=== PATIENT | male | born 1980 | race Caucasian/White ===

== ENCOUNTER → 2016-07-12 | Outpatient (CLI) | payer BC ==
--- NOTE | 2016-07-12 16:37 | MR ---
MR lumbar spine wo con LBP, francheska leg radic x 1 year, no surgery/trauma Multiplanar, multiecho imaging of the lumbar spine was obtained without contrast on a 3 Jessica magn et. REFERENCE:None. FINDINGS: Paraspinal soft tissues are normal. There is a mild dextroscoliosis. This may, in part, be positional. Vertebral body height and alignmen t are maintained. There is no spondylolysis or spondylolisthesis. Cord signal is maintained the conus ends normally at the level of the mid body of L1. At T12-L1, no definite abnormality is seen. At L1-2, there is mild capsulitis within the facets. At L2-3, there is minor hypertrophic change within the facets. At L3-4, there is a diffuse disc displacement. There is mild, bilateral intervertebral foraminal narr owing. There is mild hypertrophic change and capsulitis within the facets. At L4-5, there is mild, bilateral intervertebral foraminal narrowing. There is no significant urszula sive discopathy. There is mild hypertrophic change and capsulitis within the facets. At L5-S1, there is disc space loss and disc desiccation. There is a central and left paracentral disc protrusion impinging upon the intervertebral foramen on the left and causing severe intervertebral f oraminal narrowing on the left. This is deforming the thecal sac and also displacing the traversing S 1 nerve root on the left. There is mild capsulitis within the facets. IMPRESSION: 1. CENTRAL LEFT PARACENTRAL DISC PROTRUSION, L5-S1, CAUSING SEVERE INTERVERTEBRAL FORAMINAL NARROWING ON THE LEFT AT THIS LEVEL. 2. DIFFUSE FACET ARTHROPATHY. 3. MULTILEVEL INTERVERTEBRAL FORAMINAL NARROWING.
== END | disposition home or self-care (01) ==
LOC: RADMRIMAIN 15:18
PROVIDERS: ATTEND Family Medicine
DX: M99.73 Connective tissue and disc stenosis of intervertebral foramina of lumbar region (principal); M99.74 Connective tissue and disc stenosis of intervertebral foramina of sacral region; M51.17 Intervertebral disc disorders with radiculopathy, lumbosacral region; M46.86 Other specified inflammatory spondylopathies, lumbar region
CPT/HCPCS: 72148

== ENCOUNTER 2017-08-12 11:40 | Emergency (ER) | payer BC ==
[2017-08-12 11:56] VITALS: TEMP 98.3
[2017-08-12 12:09] LABS: Basophils % (A) 0 %; Eosinophils # (A) 0.1 k/uL (0-0.7); Eosinophils % (A) 3 %; HGB 15.4 gm/dL (13.0-17.5); Lymphocytes % (A) 20 %; MCH 31.4 pg (25.0-35.0); MCHC 34.1 g/dL (31.0-37.0); MCV 91.9 fL (80.0-100.0); Mean Platelet Volume 7.4; Monocytes # (A) 0.3 k/uL (0-1.0); Monocytes % (A) 6 %; Neutrophils # (A) 3.4 k/uL (1.3-7.7); Neutrophils % (A) 70 %; Platelet Count 188 k/uL (150-450); RBC 4.89 m/uL (4.30-5.90); RDW 12.7 % (11.5-15.5); WBC 4.8 k/uL (3.8-10.6)
--- NOTE | 2017-08-12 12:14 | XR ---
Abdomen HISTORY: Pain, nausea and vomiting View of the abdomen submitted on 2 images Lung bases are clear. There is a spinal curvature. No pathologic calcification is evident. No bowel o bstruction or pneumoperitoneum. Probable phlebolith noted in the pelvis. IMPRESSION: Nonobstructive bowel gas pattern, follow-up as indicated.
[2017-08-12 12:28] LABS: ALT 34 U/L (21-72); AST 50 U/L (17-59); Albumin 4.8 g/dL (3.5-5.0); Alkaline Phosphatase 70 U/L (38-126); Amylase 82 U/L (30-110); Anion Gap 20 mmol/L; Blood Urea Nitrogen 7 mg/dL (9-20); Calcium 9.7 mg/dL (8.4-10.2); Carbon Dioxide 17 mmol/L (22-30); Chloride 101 mmol/L (98-107); Glucose 142 mg/dL (74-99); Lipase 151 U/L (23-300); Potassium 3.4 mmol/L (3.5-5.1); Sodium 138 mmol/L (137-145); Total Bilirubin 0.7 mg/dL (0.2-1.3); Total Protein 7.4 g/dL (6.3-8.2)
[2017-08-12] MEDS ORDERED: MAG HYDROX/AL HYDROX/SIMETH 30 ML, HYOSCYAMINE ELIXIR 10 ML, CIMETIDINE HCL 300 MG, LID... PO STA ×4 (13:06)
[2017-08-12] MEDS ORDERED: SODIUM CHLORIDE 0.9% 1,000 ML IV SCH (13:15)
--- NOTE | 2017-08-12 13:20 | ED ---
Abdominal Pain HPI - General Chief Complaint: Abdominal Pain Stated Complaint: Abd Pain/Arm Pain Time Seen by Provider: 08/12/17 12:26 Source: patient, family, RN notes reviewed, old records reviewed Mode of arrival: wheelchair Limitations: no limitations - History of Present Illness Initial Comments: Is a 37-year-old male presented today chief complaint of epigastric abdominal pain for approximately one day. He reports that he woke up with this pain. He reported that when this is currently feels noticed tingling in his arms and legs. Patient's also reports that over the past few days is having abnormal taste in his mouth. Patient reports he was having a upper abdominal pain intermittently for the past week, and feels like he is not able to eat and feels full whenever he eats. He states he's had no blood in his vomit or stool. - Related Data Previous Rx's Medication Instructions Recorded Famotidine [Pepcid] 20 mg PO HS #20 tablet 08/12/17 Ondansetron Odt [Zofran Odt] 4 mg PO Q8HR PRN #12 tab 08/12/17 Allergies Allergy/AdvReac Type Severity Reaction Status Date / Time No Known Allergies Allergy Verified 08/12/17 11:48 Review of Systems ROS Statement: Those systems with pertinent positive or pertinent negative responses have been documented in the HPI. ROS Other: All systems not noted in ROS Statement are negative. Past Medical History Past Medical History: No Reported History History of Any Multi-Drug Resistant Organisms: None Reported Past Surgical History: No Surgical Hx Reported Past Psychological History: No Psychological Hx Reported Smoking Status: Never smoker Past Alcohol Use History: None Reported Past Drug Use History: None Reported General Exam - General Exam Comments Initial Comments: This patient is a well-appearing 37-year-old male. No distress. Limitations: no limitations Head exam: Present: atraumatic, normocephalic, normal inspection Eye exam: Present: normal appearance, PERRL, EOMI. Absent: scleral icterus, conjunctival injection, periorbital swelling ENT exam: Present: normal exam, mucous membranes moist Neck exam: Present: normal inspection. Absent: tenderness, meningismus, lymphadenopathy Respiratory exam: Present: normal lung sounds bilaterally. Absent: respiratory distress, wheezes, rales, rhonchi, stridor Cardiovascular Exam: Present: regular rate, normal rhythm, normal heart sounds. Absent: systolic murmur, diastolic murmur, rubs, gallop, clicks GI/Abdominal exam: Present: soft, tenderness (epigastric tenderness, no rebound or guarding), normal bowel sounds. Absent: distended, guarding, rebound, rigid Extremities exam: Present: normal inspection, full ROM, normal capillary refill. Absent: tenderness, pedal edema, joint swelling, calf tenderness Back exam: Present: normal inspection Neurological exam: Present: alert, oriented X3, CN II-XII intact Course Vital Signs 08/12/17 08/12/17 08/12/17 11:48 11:51 13:51 Temperature 98.3 F Pulse Rate 123 H 77 Respiratory 28 H 18 Rate Blood Pressure 163/89 142/83 O2 Sat by Pulse 100 Oximetry 08/12/17 15:42 Temperature Pulse Rate 84 Respiratory 18 Rate Blood Pressure 122/79 O2 Sat by Pulse 98 Oximetry Medical Decision Making - Medical Decision Making This is a 37-year-old male chief complaint of severe abdominal pain that occurred this morning. He has been having some abdominal pain earlier in the week. He feels full and has not had much appetite. Patient arrives with abnormal vitals of 128 bpm Heart rate in was breathing rapidly due to pain. By the time I was able to see a patient approximately one hour into his ER stay he reports that his pain is subsiding and is feeling a bit better. Patient EKG was reviewed and normal troponins negative. Concerned that the pain may be related to gallbladder spasm or attack. We did receive an ultrasound which shows no stones. The gallbladder was contracted due to limited study. Patient' s lab work was reviewed and otherwise shows no significant abnormality's. Likely ketoacidosis from lack of appetite. Again when patient was evaluated he has minimal epigastric tenderness and no significant pain. The patient GI cocktail reports it did help somewhat. This time I discussed that his pain could be related to gallbladder spasm or possibly gastritis. I discussed the patient needs to follow-up with his primary care provider and possibly GI specialist. Discussed the pain returns that he needs to be evaluated me do further studies at his CAT scan. Patient is in grants. He states he feels better without much intervention at this time. Patient will be discharged with a prescription for Pepcid and nausea medicine. Discussed clear liquid diet as well as following up with PCP. Patient be given a referral for GI specialist. - Lab Data Result diagrams: 08/12/17 11:55 08/12/17 11:55 Lab Results 08/12/17 08/12/17 08/12/17 Range/Units 11:55 11:55 11:55 WBC 4.8 (3.8-10.6) k/uL RBC 4.89 (4.30-5.90) m/uL Hgb 15.4 (13.0-17.5) gm/dL Hct 45.0 (39.0-53.0) % MCV 91.9 (80.0-100.0) fL MCH 31.4 (25.0-35.0) pg MCHC 34.1 (31.0-37.0) g/dL RDW 12.7 (11.5-15.5) % Plt Count 188 (150-450) k/uL Neutrophils % 70 % Lymphocytes % 20 % Monocytes % 6 % Eosinophils % 3 % Basophils % 0 % Neutrophils # 3.4 (1.3-7.7) k/uL Lymphocytes # 1.0 (1.0-4.8) k/uL Monocytes # 0.3 (0-1.0) k/uL Eosinophils # 0.1 (0-0.7) k/uL Basophils # 0.0 (0-0.2) k/uL Sodium 138 (137-145) mmol/L Potassium 3.4 L (3.5-5.1) mmol/L Chloride 101 (98-107) mmol/L Carbon Dioxide 17 L (22-30) mmol/L Anion Gap 20 mmol/L BUN 7 L (9-20) mg/dL Creatinine 0.69 (0.66-1.25) mg/dL Est GFR (CKD-EPI)AfAm >90 (>60 ml/min/1.73 sqM) Est GFR (CKD-EPI)NonAf >90 (>60 ml/min/1.73 sqM) Glucose 142 H (74-99) mg/dL Calcium 9.7 (8.4-10.2) mg/dL Total Bilirubin 0.7 (0.2-1.3) mg/dL AST 50 (17-59) U/L ALT 34 (21-72) U/L Alkaline Phosphatase 70 (38-126) U/L Troponin I (0.000-0.034) ng/mL Total Protein 7.4 (6.3-8.2) g/dL Albumin 4.8 (3.5-5.0) g/dL Amylase 82 (30-110) U/L Lipase 151 (23-300) U/L Urine Color Urine Appearance (Clear) Urine pH (5.0-8.0) Ur Specific [place] (1.001-1.035) Urine Protein (Negative) Urine Glucose (UA) (Negative) Urine Ketones (Negative) Urine Blood (Negative) Urine Nitrite (Negative) Urine Bilirubin (Negative) Urine Urobilinogen (<2.0) mg/dL Ur Leukocyte Esterase (Negative) Acetone, Qual Negative (Negative) 08/12/17 08/12/17 Range/Units 11:55 13:50 WBC (3.8-10.6) k/uL RBC (4.30-5.90) m/uL Hgb (13.0-17.5) gm/dL Hct (39.0-53.0) % MCV (80.0-100.0) fL MCH (25.0-35.0) pg MCHC (31.0-37.0) g/dL RDW (11.5-15.5) % Plt Count (150-450) k/uL Neutrophils % % Lymphocytes % % Monocytes % % Eosinophils % % Basophils % % Neutrophils # (1.3-7.7) k/uL Lymphocytes # (1.0-4.8) k/uL Monocytes # (0-1.0) k/uL Eosinophils # (0-0.7) k/uL Basophils # (0-0.2) k/uL Sodium (137-145) mmol/L Potassium (3.5-5.1) mmol/L Chloride (98-107) mmol/L Carbon Dioxide (22-30) mmol/L Anion Gap mmol/L BUN (9-20) mg/dL Creatinine (0.66-1.25) mg/dL Est GFR (CKD-EPI)AfAm (>60 ml/min/1.73 sqM) Est GFR (CKD-EPI)NonAf (>60 ml/min/1.73 sqM) Glucose (74-99) mg/dL Calcium (8.4-10.2) mg/dL Total Bilirubin (0.2-1.3) mg/dL AST (17-59) U/L ALT (21-72) U/L Alkaline Phosphatase (38-126) U/L Troponin I <0.012 (0.000-0.034) ng/mL Total Protein (6.3-8.2) g/dL Albumin (3.5-5.0) g/dL Amylase (30-110) U/L Lipase (23-300) U/L Urine Color Light Yellow Urine Appearance Clear (Clear) Urine pH 7.5 (5.0-8.0) Ur Specific [place] 1.004 (1.001-1.035) Urine Protein Negative (Negative) Urine Glucose (UA) Negative (Negative) Urine Ketones Trace H (Negative) Urine Blood Negative (Negative) Urine Nitrite Negative (Negative) Urine Bilirubin Negative (Negative) Urine Urobilinogen <2.0 (<2.0) mg/dL Ur Leukocyte Esterase Negative (Negative) Acetone, Qual (Negative) 08/12/17 14:19 Normal Saline rhythm, 76 these were minute. ID interval 160 ms. QRS duration 84 ms. QT QTc is 374/420 ms. Noticed this elevation or T-wave inversion. - Radiology Data Radiology results: report reviewed KUB shows a lot of instructed bowel gas pattern. Ultrasound shows contracted gallbladder. Following up for is indicated. At slightly thickening may be due to the patient not being nothing by mouth. The right kidney has no hydronephrosis or masses seen. Disposition Clinical Impression: Gastritis Disposition: HOME SELF-CARE Condition: Good Instructions: Peptic Ulcer (ED), Diet for Stomach Ulcers and Gastritis (ED) Additional Instructions: Patient needs a follow-up with primary care provider within the next 1-2 days. Clear liquid diet from this point forward, for the next 24-48 hours. Patient then can have the bananas, rice, applesauce and toast diet. Take the medication as prescribed. Follow-up with her primary care provider on Tuesday as well as follow-up with GI specialist. Return to emergency department if any alarming signs or symptoms occur. Prescriptions: Famotidine [Pepcid] 20 mg PO HS #20 tablet Ondansetron Odt [Zofran Odt] 4 mg PO Q8HR PRN #12 tab PRN Reason: Nausea Referrals: Vinay Mcbride DO [Primary Care Provider] - 1-2 days Helio Earl MD [STAFF PHYSICIAN] - 1-2 days Time of Disposition: 15:40
[2017-08-12] MEDS ORDERED: ONDANSETRON 4 MG/2 ML VIAL IVP STA (14:14)
[2017-08-12 14:16] VITALS: RESP 18
[2017-08-12 14:26] LABS: Appearance,Urine Clear (Clear); Bilirubin,Urine Negative (Negative); Blood,Urine Negative (Negative); Color,Urine Light Yellow; Glucose,Urine (UA) Negative (Negative); Ketones,Urine Trace (Negative); Leukocyte Esterase,Urine Negative (Negative); PH, Urine 7.5 (5.0-8.0); Protein,Urine Negative (Negative); Specific Gravity,Urine 1.004 (1.001-1.035); Urobilinogen,Urine <2.0 mg/dL (<2.0)
--- NOTE | 2017-08-12 14:59 | US ---
EXAMINATION TYPE: US gallbladder DATE OF EXAM: 08/12/2017 COMPARISON: NONE CLINICAL HISTORY: Pain. EXAM MEASUREMENTS: Liver Length: 13.0 cm Gallbladder Wall: 0.4 cm CBD: 0.4 cm Right Kidney: 10.9 x 3.8 x 5.0 cm Pancreas: wnl Liver: wnl Gallbladder: slightly thickened may be due to patient not being NPO for test, gallbladder is contrac thelma Evidence for sonographic Jennings's sign: No CBD: wnl Right Kidney: No hydronephrosis or masses seen and cortical medullary differentiation is maintained There is no ascites. IMPRESSION: Contracted gallbladder. Follow-up as indicated.
[2017-08-12 15:44] VITALS: BP 122/79; PULSE 84
== END 2017-08-12 16:04 | disposition home or self-care (01) ==
LOC: EC 11:40
DX: K29.70 Gastritis, unspecified, without bleeding (principal); K82.0 Obstruction of gallbladder; R20.2 Paresthesia of skin; R63.0 Anorexia
CPT/HCPCS: 36415; 93005; 80053; 82150; 82009; 83690; 84484; 85025; 81003; 74018; 76705; 99285; 96374; 96361 ×2; J2405

== ENCOUNTER → 2017-08-22 | Outpatient (CLI) | payer BC ==
--- NOTE | 2017-08-22 15:33 | NM ---
Nuclear medicine hepatobiliary scan. HISTORY: Pain. DOSAGE: The patient received 8 ounces of ensure plus and 5.4 mCi of Technetium 99m Choletec. FINDINGS: There is normal hepatic extraction. The gallbladder is seen by 50 minutes. There is bilia ry to bowel clearance by 20 minutes. Ejection fraction is 94%. IMPRESSION: 1. Gallbladder fills within 50 minutes and within normal limits. 2. Ejection fraction of 94% correlate for hyperdynamic gallbladder.
== END | disposition home or self-care (01) ==
LOC: RADNMMAIN 12:36
PROVIDERS: ATTEND Family Medicine
DX: R10.11 Right upper quadrant pain (principal)
CPT/HCPCS: 78226; A9537

== ENCOUNTER 2018-01-31 08:11 | Emergency (ER) | payer BC ==
[2018-01-31] MEDS ORDERED: LORazepam 2 MG/ML INJ IV STA (08:19)
[2018-01-31 08:21] VITALS: BP 171/96; PULSE 70; RESP 17
[2018-01-31 08:22] VITALS: TEMP 99
--- NOTE | 2018-01-31 08:24 | ED ---
General Adult HPI - General Stated complaint: numbness vomiting Time Seen by Provider: 01/31/18 08:19 Source: patient, EMS, RN notes reviewed Mode of arrival: EMS Limitations: no limitations - History of Present Illness Initial comments: 37-year-old male presents emergency Department chief complaint of feeling shaky , weakness. Patient states that his been having these bouts that been coming more frequent. He has been seen in the hospital in the past. He has been seen his primary care physician extensively and he has been referred to specialists he has had lab work, CAT scans, EMGs, EKGs all with no acute findings. Patient states that he believes it may be related to anxiety or depression. 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 Patient states he has never struggle with anxiety before though. Patient is not suicidal or homicidal. Patient denies any focal weakness he states he just generalized feels shaky all over weak. He states initially started in his shoulders and progresses. - Related Data Previous Rx's Medication Instructions Recorded LORazepam [Ativan] 0.5 mg PO BID PRN #10 tab 01/31/18 Ondansetron Odt [Zofran Odt] 4 mg PO Q8HR PRN #10 tab 01/31/18 Allergies Allergy/AdvReac Type Severity Reaction Status Date / Time No Known Allergies Allergy Verified 01/31/18 09:00 Review of Systems ROS Statement: Those systems with pertinent positive or pertinent negative responses have been documented in the HPI. ROS Other: All systems not noted in ROS Statement are negative. Past Medical History Past Medical History: No Reported History History of Any Multi-Drug Resistant Organisms: None Reported Past Surgical History: No Surgical Hx Reported Past Psychological History: No Psychological Hx Reported Smoking Status: Never smoker Past Alcohol Use History: Occasional Past Drug Use History: None Reported General Exam Limitations: no limitations General appearance: alert, in no apparent distress Head exam: Present: atraumatic, normocephalic, normal inspection Eye exam: Present: normal appearance, PERRL, EOMI. Absent: scleral icterus, conjunctival injection, periorbital swelling ENT exam: Present: normal exam, normal oropharynx, mucous membranes moist, TM's normal bilaterally, normal external ear exam Neck exam: Present: normal inspection, full ROM. Absent: tenderness, meningismus, lymphadenopathy Respiratory exam: Present: normal lung sounds bilaterally. Absent: respiratory distress, wheezes, rales, rhonchi, stridor Cardiovascular Exam: Present: regular rate, normal rhythm, normal heart sounds. Absent: systolic murmur, diastolic murmur, rubs, gallop, clicks GI/Abdominal exam: Present: soft, normal bowel sounds. Absent: distended, tenderness, guarding, rebound, rigid Extremities exam: Present: normal inspection, full ROM, normal capillary refill. Absent: tenderness, pedal edema, joint swelling, calf tenderness Neurological exam: Present: alert, oriented X3, CN II-XII intact Psychiatric exam: Present: anxious Skin exam: Present: warm, dry, intact, normal color. Absent: rash Course Vital Signs 01/31/18 08:15 Temperature 99.0 F Pulse Rate 70 Respiratory 17 Rate Blood Pressure 171/96 O2 Sat by Pulse 100 Oximetry - Reevaluation(s) Reevaluation #1: 01/31/18 08:55 Patient reevaluated states that he does feel improved after Ativan. Reevaluation #2: 01/31/18 09:34 Patient reevaluated again states that he feels 100% normal states he feels the best he has in a while. Patient was informed she'll be discharged. Medical Decision Making - Medical Decision Making 37-year-old male presented for generalized numbness, weakness. Patient symptoms seem to be related to anxiety, panic attack. Patient was given Ativan , Zofran and feels 100% improved. He had a normal exam. He has had extensive outpatient workup including lab work, CT, EMG. Patient will be discharged with a few tablets of Ativan, Zofran. He is advised to follow-up with his PCP for further treatment. Disposition Clinical Impression: Anxiety, Nausea, Panic attack Disposition: HOME SELF-CARE Condition: Stable Instructions: Panic Attack (ED) Additional Instructions: Please return to the Emergency Department if symptoms worsen or any other concerns. Prescriptions: LORazepam [Ativan] 0.5 mg PO BID PRN #10 tab PRN Reason: Anxiety Ondansetron Odt [Zofran Odt] 4 mg PO Q8HR PRN #10 tab PRN Reason: Nausea Is patient prescribed a controlled substance at d/c from ED?: Yes When asked, does pt state using other controlled substances?: No If prescribed controlled substance>3 days was MAPS reviewed?: Prescribed <3 Days Referrals: Vinay Mcbride DO [Primary Care Provider] - 1-2 days Time of Disposition: 09:37
[2018-01-31] MEDS ORDERED: ONDANSETRON 4 MG/2 ML VIAL IVP STA (08:52)
== END 2018-01-31 09:53 | disposition home or self-care (01) ==
LOC: EC 08:11
DX: F41.0 Panic disorder [episodic paroxysmal anxiety] (principal)
CPT/HCPCS: 99284; 96374; 96375; J2060; J2405

== ENCOUNTER 2018-02-04 07:10 | Emergency (ER) | payer BC ==
[2018-02-04 07:16] VITALS: RESP 16
[2018-02-04] MEDS ORDERED: ONDANSETRON 4 MG/2 ML VIAL IVP STA (07:39)
--- NOTE | 2018-02-04 07:51 | ED ---
General Adult HPI - General Chief complaint: Nausea/Vomiting/Diarrhea Stated complaint: Weakness/Dizziness Time Seen by Provider: 02/04/18 07:10 Source: patient, RN notes reviewed Mode of arrival: wheelchair Limitations: no limitations - History of Present Illness Initial comments: This is a 37-year-old male who presents emergency Department complaining of generalized weakness and vomiting. Patient states she's had intermittent symptoms at the same since the spring. Patient states his been worked up a couple of times and seen her primary medical care doctor and they have been unable to figure out what is going on. Patient states she starts with weakness in his shoulders and moves down to his abdomen and that he starts vomiting and then he just becomes weaker and weaker to the point he doesn't even think he can stand sometimes. Patient states the worst episode of this was in the spring but he's had many more episodes lately in the frequency is becoming greater. Patient denies any fever chills. Patient denies any specific abdominal pain. Patient denies any chest pain difficulty breathing shortness of breath or palpitations. Patient denies headache patient denies numbness weakness. Patient denies any dizziness near syncopal episode or syncopal episode. Patient denies any dysuria hematuria urinary frequency. Patient denies any back pain. Patient denies any recent injury or trauma. - Related Data Home Medications Medication Instructions Recorded Confirmed Sertraline [Zoloft] 25 mg PO DAILY 02/04/18 02/04/18 Previous Rx's Medication Instructions Recorded LORazepam [Ativan] 0.5 mg PO BID PRN #10 tab 01/31/18 Allergies Allergy/AdvReac Type Severity Reaction Status Date / Time No Known Allergies Allergy Verified 02/04/18 07:16 Review of Systems ROS Statement: Those systems with pertinent positive or pertinent negative responses have been documented in the HPI. ROS Other: All systems not noted in ROS Statement are negative. Past Medical History Past Medical History: No Reported History History of Any Multi-Drug Resistant Organisms: None Reported Past Surgical History: No Surgical Hx Reported Past Psychological History: Anxiety Smoking Status: Heavy tobacco smoker Past Alcohol Use History: Daily Past Drug Use History: None Reported General Exam - General Exam Comments Initial Comments: GENERAL: Patient is well-developed and well-nourished. Patient is nontoxic and well- hydrated and is in mild distress. ENT: Neck is soft and supple. No significant lymphadenopathy is noted. Oropharynx is clear. Moist mucous membranes. Neck has full range of motion without eliciting any pain. EYES: The sclera were anicteric and conjunctiva were pink and moist. Extraocular movements were intact and pupils were equal round and reactive to light. Eyelids were unremarkable. PULMONARY: Unlabored respirations. Good breath sounds bilaterally. No audible rales rhonchi or wheezing was noted. CARDIOVASCULAR: There is a regular rate and rhythm without any murmurs gallops or rubs. ABDOMEN: Soft and nontender with normal bowel sounds. SKIN: Skin is clear with no lesions or rashes and otherwise unremarkable. NEUROLOGIC: Patient is alert and oriented x3. Cranial nerves II through XII are grossly intact. Motor and sensory are also intact. Normal speech, volume and content. Symmetrical smile. MUSCULOSKELETAL: Normal extremities with adequate strength and full range of motion. LYMPHATICS: No significant lymphadenopathy is noted PSYCHIATRIC: Normal psychiatric evaluation. Normal interpersonal interactions appears functionally intact in deals appropriately with others. No signs of depression. No signs of anxiety. Limitations: no limitations Course Vital Signs 02/04/18 07:14 Temperature 99 F Pulse Rate 67 Respiratory 16 Rate Blood Pressure 122/81 O2 Sat by Pulse 100 Oximetry Medical Decision Making - Medical Decision Making CT of the abdomen shows mild colitis - Lab Data Result diagrams: 02/04/18 07:43 02/04/18 07:43 Lab Results 02/04/18 02/04/18 02/04/18 Range/Units 07:43 07:43 07:43 WBC 4.6 (3.8-10.6) k/uL RBC 5.35 (4.30-5.90) m/uL Hgb 16.9 (13.0-17.5) gm/dL Hct 51.0 (39.0-53.0) % MCV 95.3 (80.0-100.0) fL MCH 31.5 (25.0-35.0) pg MCHC 33.1 (31.0-37.0) g/dL RDW 12.7 (11.5-15.5) % Plt Count 196 (150-450) k/uL Neutrophils % 64 % Lymphocytes % 25 % Monocytes % 6 % Eosinophils % 4 % Basophils % 0 % Neutrophils # 2.9 (1.3-7.7) k/uL Lymphocytes # 1.1 (1.0-4.8) k/uL Monocytes # 0.3 (0-1.0) k/uL Eosinophils # 0.2 (0-0.7) k/uL Basophils # 0.0 (0-0.2) k/uL Sodium 140 (137-145) mmol/L Potassium 4.8 (3.5-5.1) mmol/L Chloride 102 (98-107) mmol/L Carbon Dioxide 25 (22-30) mmol/L Anion Gap 13 mmol/L BUN 9 (9-20) mg/dL Creatinine 0.74 (0.66-1.25) mg/dL Est GFR (CKD-EPI)AfAm >90 (>60 ml/min/1.73 sqM) Est GFR (CKD-EPI)NonAf >90 (>60 ml/min/1.73 sqM) Glucose 76 (74-99) mg/dL Calcium 9.9 (8.4-10.2) mg/dL Total Bilirubin 0.9 (0.2-1.3) mg/dL AST 36 (17-59) U/L ALT 35 (21-72) U/L Alkaline Phosphatase 58 (38-126) U/L Total Creatine Kinase 67 (55-170) U/L CK-MB (CK-2) 0.5 (0.0-2.4) ng/mL CK-MB (CK-2) Rel Index 0.7 Total Protein 7.8 (6.3-8.2) g/dL Albumin 4.9 (3.5-5.0) g/dL Amylase 102 (30-110) U/L Lipase 130 (23-300) U/L Urine Color Urine Appearance (Clear) Urine pH (5.0-8.0) Ur Specific [place] (1.001-1.035) Urine Protein (Negative) Urine Glucose (UA) (Negative) Urine Ketones (Negative) Urine Blood (Negative) Urine Nitrite (Negative) Urine Bilirubin (Negative) Urine Urobilinogen (<2.0) mg/dL Ur Leukocyte Esterase (Negative) 02/04/18 Range/Units 07:43 WBC (3.8-10.6) k/uL RBC (4.30-5.90) m/uL Hgb (13.0-17.5) gm/dL Hct (39.0-53.0) % MCV (80.0-100.0) fL MCH (25.0-35.0) pg MCHC (31.0-37.0) g/dL RDW (11.5-15.5) % Plt Count (150-450) k/uL Neutrophils % % Lymphocytes % % Monocytes % % Eosinophils % % Basophils % % Neutrophils # (1.3-7.7) k/uL Lymphocytes # (1.0-4.8) k/uL Monocytes # (0-1.0) k/uL Eosinophils # (0-0.7) k/uL Basophils # (0-0.2) k/uL Sodium (137-145) mmol/L Potassium (3.5-5.1) mmol/L Chloride (98-107) mmol/L Carbon Dioxide (22-30) mmol/L Anion Gap mmol/L BUN (9-20) mg/dL Creatinine (0.66-1.25) mg/dL Est GFR (CKD-EPI)AfAm (>60 ml/min/1.73 sqM) Est GFR (CKD-EPI)NonAf (>60 ml/min/1.73 sqM) Glucose (74-99) mg/dL Calcium (8.4-10.2) mg/dL Total Bilirubin (0.2-1.3) mg/dL AST (17-59) U/L ALT (21-72) U/L Alkaline Phosphatase (38-126) U/L Total Creatine Kinase (55-170) U/L CK-MB (CK-2) (0.0-2.4) ng/mL CK-MB (CK-2) Rel Index Total Protein (6.3-8.2) g/dL Albumin (3.5-5.0) g/dL Amylase (30-110) U/L Lipase (23-300) U/L Urine Color Yellow Urine Appearance Clear (Clear) Urine pH 6.0 (5.0-8.0) Ur Specific [place] 1.010 (1.001-1.035) Urine Protein Negative (Negative) Urine Glucose (UA) Negative (Negative) Urine Ketones Trace H (Negative) Urine Blood Negative (Negative) Urine Nitrite Negative (Negative) Urine Bilirubin Negative (Negative) Urine Urobilinogen <2.0 (<2.0) mg/dL Ur Leukocyte Esterase Negative (Negative) Disposition Clinical Impression: Colitis Disposition: HOME SELF-CARE Condition: Good Instructions: Colitis (ED) Is patient prescribed a controlled substance at d/c from ED?: No Referrals: Juan Antonio Alonso MD [Primary Care Provider] - 1-2 days Hleio Earl MD [STAFF PHYSICIAN] - 1-2 days Time of Disposition: 09:45
[2018-02-04 08:05] LABS: Basophils % (A) 0 %; Eosinophils # (A) 0.2 k/uL (0-0.7); Eosinophils % (A) 4 %; HGB 16.9 gm/dL (13.0-17.5); Lymphocytes # (A) 1.1 k/uL (1.0-4.8); Lymphocytes % (A) 25 %; MCH 31.5 pg (25.0-35.0); MCHC 33.1 g/dL (31.0-37.0); MCV 95.3 fL (80.0-100.0); Mean Platelet Volume 6.8; Monocytes # (A) 0.3 k/uL (0-1.0); Monocytes % (A) 6 %; Neutrophils # (A) 2.9 k/uL (1.3-7.7); Neutrophils % (A) 64 %; Platelet Count 196 k/uL (150-450); RBC 5.35 m/uL (4.30-5.90); RDW 12.7 % (11.5-15.5); WBC 4.6 k/uL (3.8-10.6)
[2018-02-04 08:06] LABS: Appearance,Urine Clear (Clear); Bilirubin,Urine Negative (Negative); Blood,Urine Negative (Negative); Color,Urine Yellow; Glucose,Urine (UA) Negative (Negative); Ketones,Urine Trace (Negative); Leukocyte Esterase,Urine Negative (Negative); Nitrite,Urine Negative (Negative); Protein,Urine Negative (Negative); Urobilinogen,Urine <2.0 mg/dL (<2.0)
[2018-02-04 08:15] LABS: ALT 35 U/L (21-72); AST 36 U/L (17-59); Albumin 4.9 g/dL (3.5-5.0); Alkaline Phosphatase 58 U/L (38-126); Amylase 102 U/L (30-110); Anion Gap 13 mmol/L; Blood Urea Nitrogen 9 mg/dL (9-20); Calcium 9.9 mg/dL (8.4-10.2); Carbon Dioxide 25 mmol/L (22-30); Chloride 102 mmol/L (98-107); Glucose 76 mg/dL (74-99); Lipase 130 U/L (23-300); Potassium 4.8 mmol/L (3.5-5.1); Sodium 140 mmol/L (137-145); Total Bilirubin 0.9 mg/dL (0.2-1.3); Total Protein 7.8 g/dL (6.3-8.2)
[2018-02-04 08:46] LABS: Creatine Kinase MB 0.5 ng/mL (0.0-2.4)
--- NOTE | 2018-02-04 09:26 | CT ---
EXAMINATION TYPE: CT abdomen pelvis w con DATE OF EXAM: 02/04/2018 COMPARISON: NONE HISTORY: 37-year-old male Weakness, dizziness and pain TECHNIQUE: Contiguous axial scanning of the abdomen and pelvis following administration of 100 ml Iso matthias 300 IV contrast. Delayed images through the kidneys and coronal/sagittal reconstructions perform ed. CT DLP: 557 mGycm Automated exposure control for dose reduction was used. FINDINGS: Heart normal size without pericardial effusion. Lung bases clear without pleural effusion. No focal liver lesion or biliary ductal dilatation. Portal venous system is patent. Gallbladder, adrenal glands, kidneys, spleen, and pancreas appear within normal limits. No dilated small bowel, free fluid, or free air. Normal appendix. Mild stool burden. No pericolonic inflammatory change. Mild circumferential wall thickening extending from the mid descending colon to the distal sigmoid colon likely relates to nondistention. No mesenteric or retroperitoneal lymphadenopathy. Bladder is urine distended. There is mild circumferential bladder wall thickening. Prostate gland portia sures 4.3 cm wide. No abnormal fluid collection in the pelvis or pelvic lymphadenopathy. Bones: No osseous destructive process. Degenerative disc disease L5-S1. IMPRESSION: 1. MILD CIRCUMFERENTIAL WALL THICKENING EXTENDING FROM THE MID DESCENDING COLON TO THE MID SIGMOID CO ULD RELATE TO NONDISTENTION OR A MILD COLITIS. 2. MILD CIRCUMFERENTIAL BLADDER WALL THICKENING MAY BE CHRONIC IN THIS PATIENT. CORRELATE TO EXCLUDE CYSTITIS. 3. OTHERWISE, NO ACUTE INFLAMMATORY PROCESS IDENTIFIED IN THE ABDOMEN OR PELVIS TO EXPLAIN THE PATIEN T'S SYMPTOMS.
[2018-02-04 10:01] VITALS: BP 121/78; PULSE 70; TEMP 98
== END 2018-02-04 10:00 | disposition home or self-care (01) ==
LOC: EC 07:10
DX: K52.9 Noninfective gastroenteritis and colitis, unspecified (principal); F41.9 Anxiety disorder, unspecified; F17.200 Nicotine dependence, unspecified, uncomplicated; Z79.899 Other long term (current) drug therapy
CPT/HCPCS: 36415; 80053; 82150; 82550; 82553; 83690; 85025; 81003; 74177; 99284; 96374; J2405; Q9967

== ENCOUNTER 2018-09-13 17:09 | Emergency (ER) | payer BC ==
[2018-09-13 17:20] VITALS: TEMP 98.9
[2018-09-13] MEDS ORDERED: LORazepam 1 MG TAB PO STA (18:24)
[2018-09-13] MEDS ORDERED: LORazepam 2 MG/ML INJ IM STA (18:26)
--- NOTE | 2018-09-13 18:31 | ED ---
General Adult HPI - General Chief complaint: Anxiety Stated complaint: anxiety, chest pain Time Seen by Provider: 09/13/18 17:52 Source: patient, RN notes reviewed Mode of arrival: wheelchair Limitations: no limitations - History of Present Illness Initial comments: 38-year-old male with a past medical history of anxiety disorder presents to the emergency department for a chief complaint of panic attack. Patient states that over the past several days he has felt more anxious than normal. States today this worsened and he started to feel chest tightness and very nauseous. Patient feels jittery as well. Patient states the symptoms are all classic for his anxiety. States he stopped taking his antianxiety medications 3 months ago because he did not want to be on medications. Patient denies any inciting factors of this anxiety. He denies any thoughts of suicide or thoughts of depression.Patient has no other complaints at this time including shortness of breath, abdominal pain, headache, or visual changes. - Related Data Home Medications Medication Instructions Recorded Confirmed Sertraline [Zoloft] 100 mg PO DAILY 09/13/18 09/13/18 Previous Rx's Medication Instructions Recorded LORazepam [Ativan] 0.5 mg PO TID PRN 3 Days #9 tab 09/13/18 Allergies Allergy/AdvReac Type Severity Reaction Status Date / Time No Known Allergies Allergy Verified 09/13/18 18:02 Review of Systems ROS Statement: Those systems with pertinent positive or pertinent negative responses have been documented in the HPI. ROS Other: All systems not noted in ROS Statement are negative. Past Medical History Past Medical History: No Reported History History of Any Multi-Drug Resistant Organisms: None Reported Past Surgical History: No Surgical Hx Reported Past Psychological History: Anxiety Smoking Status: Heavy tobacco smoker Past Alcohol Use History: Daily Past Drug Use History: None Reported General Exam Limitations: no limitations General appearance: anxious Head exam: Present: atraumatic, normocephalic, normal inspection Eye exam: Present: normal appearance, PERRL, EOMI. Absent: scleral icterus, conjunctival injection, periorbital swelling ENT exam: Present: normal exam, mucous membranes moist Neck exam: Present: normal inspection, full ROM. Absent: tenderness, meningismus, lymphadenopathy Respiratory exam: Present: normal lung sounds bilaterally. Absent: respiratory distress, wheezes, rales, rhonchi, stridor Cardiovascular Exam: Present: regular rate, normal rhythm, normal heart sounds. Absent: systolic murmur, diastolic murmur, rubs, gallop, clicks GI/Abdominal exam: Present: soft, normal bowel sounds. Absent: distended, tenderness, guarding, rebound, rigid Neurological exam: Present: alert, oriented X3, CN II-XII intact Psychiatric exam: Present: anxious. Absent: homicidal ideation, suicidal ideation Course Vital Signs 09/13/18 09/13/18 09/13/18 17:17 18:30 19:00 Temperature 98.9 F Pulse Rate 116 H 75 Respiratory 18 19 Rate Blood Pressure 137/83 138/97 138/97 O2 Sat by Pulse 100 98 Oximetry EKG Findings - EKG Comments: EKG Findings:: Normal sinus rhythm, ventricular rate 78, GA interval 126, QTc 450 Medical Decision Making - Medical Decision Making 38-year-old male presents to the emergency department for a chief complaint of anxiety. Patient states his symptoms are all classic for his anxiety including some mild chest pain, nausea and jitteriness. States he used to take anti- anxiety medications but stopped these about 3 months ago because he did not want to be on medications any more. States over the past several days his anxiety is worsen and today he feels like he had a panic attack. Patient was given Ativan and felt significantly better. Patient was initially tachycardic and heart rate has stabilized to the 60s to 70s. Patient is requesting outpatient referrals for counseling which were given to him. Patient states he is feeling so much better he is ready to go home. She will follow up patient. Discussed returning here if he has any worsening symptoms especially suicidal thoughts which he agrees to do. Again denying any suicidal thoughts at discharge. Disposition Clinical Impression: Anxiety Disposition: HOME SELF-CARE Condition: Good Instructions (If sedation given, give patient instructions): Generalized Anxiety Disorder (ED) Additional Instructions: Please follow up with primary care and counseling services given to you. Please take Ativan when needed but do not take this when driving or operating machinery. Please return here to the emergency department if you've any worsening symptoms including any suicidal thoughts. Prescriptions: LORazepam [Ativan] 0.5 mg PO TID PRN 3 Days #9 tab PRN Reason: Anxiety Is patient prescribed a controlled substance at d/c from ED?: No Referrals: Juan Antonio Alonso MD [Primary Care Provider] - 1-2 days Time of Disposition: 19:33
--- NOTE | 2018-09-13 18:49 | XR ---
EXAMINATION TYPE: XR chest 2V DATE OF EXAM: 09/13/2018 COMPARISON: NONE HISTORY: Chest pain TECHNIQUE: Frontal and lateral views of the chest are obtained. FINDINGS: Heart and mediastinum are normal. Lungs are clear. Diaphragm is normal. Bony thorax appear s normal. There are chest leads. IMPRESSION: Normal chest. .
[2018-09-13 19:27] VITALS: BP 138/97; PULSE 75; RESP 19
== END 2018-09-13 19:42 | disposition home or self-care (01) ==
LOC: EC 17:09
DX: F41.9 Anxiety disorder, unspecified (principal); R07.89 Other chest pain; R11.0 Nausea; F17.200 Nicotine dependence, unspecified, uncomplicated; Z79.899 Other long term (current) drug therapy
CPT/HCPCS: 93005; 71046; 99283; 96372; J2060

== ENCOUNTER → 2019-09-20 | Outpatient (CLI) | payer BC ==
--- NOTE | 2019-09-20 11:52 | XR ---
EXAMINATION TYPE: XR hand complete LT, XR wrist complete LT DATE OF EXAM: 09/20/2019 CLINICAL HISTORY: pain TECHNIQUE: Frontal, lateral and oblique images of the left hand and wrist are obtained. COMPARISON: None. FINDINGS: Oblique fracture fifth metatarsal with 2 mm displacement noted. Fracture extends through th e middle one third of its diaphysis. Soft tissue swelling seen. No additional fractures noted. Osseou s structures of the left wrist are intact. IMPRESSION: Oblique fracture fifth metatarsal with 2 mm displacement noted. ICD 10 closed FRACTURE, INITIAL EVALUATION
== END | disposition home or self-care (01) ==
LOC: RADXRYALE 11:23
PROVIDERS: ATTEND Physician Assistant
DX: S62.102A Fracture of unspecified carpal bone, left wrist, initial encounter for closed fracture (principal)

== ENCOUNTER → 2020-01-21 | Outpatient (CLI) | payer BC ==
--- NOTE | 2020-01-21 20:54 | XR ---
EXAMINATION TYPE: XR ankle complete LT DATE OF EXAM: 01/21/2020 CLINICAL HISTORY: Left ankle pain after turning it one week ago. TECHNIQUE: Frontal, lateral and oblique images of the left ankle are obtained. COMPARISON: None. FINDINGS: There is no acute fracture/dislocation evident in the left ankle. The ankle mortise appea rs within normal limits. Accessory os trigonum. The overlying soft tissue appears unremarkable. IMPRESSION: There is no acute fracture or dislocation in the left ankle.
== END | disposition home or self-care (01) ==
LOC: RADXRYALE 16:18
PROVIDERS: ATTEND Physician Assistant Medical
DX: S90.912A Unspecified superficial injury of left ankle, initial encounter (principal)

== ENCOUNTER → 2023-11-28 | Outpatient (CLI) | payer BC ==
--- NOTE | 2023-11-28 16:17 | CA ---
Transthoracic Echo Report Name: Timothy Ramos Age: 43 Gender: M : 1980 Exam Date: 11/28/2023 14:54 Exam Location: [facility] Ht (in): 67 Wt (lb): 115 Ordering Physician: Vinay Mcbride DO Attending/Referring Phys: Ofelia Melendez PAC Seismic Engineer Ana Elizabeth RDCS Procedure CPT: Indications: R03.0 ELEVATED BLOOD-PRESSURE READING, W/O DIAGNOS Cardiac Hx: Technical Quality: Good Contrast 1: Total Dose (mL): Contrast 2: Total Dose (mL): MEASUREMENTS (Male / Female) Normal Values 2D ECHO LV Diastolic Diameter PLAX 3.9 cm 4.2 - 5.9 / 3.9 - 5.3 cm LV Systolic Diameter PLAX 2.4 cm IVS Diastolic Thickness 0.9 cm 0.6 - 1.0 / 0.6 - 0.9 cm LVPW Diastolic Thickness 1.2 cm 0.6 - 1.0 / 0.6 - 0.9 cm LV Relative Wall Thickness 0.5 RV Internal Dim ED PLAX 2.5 cm LA Systolic Diameter LX 3.0 cm 3.0 - 4.0 / 2.7 - 3.8 cm LV Diastolic Volume MOD 4C 70.6 cm??? LV Systolic Volume MOD 4C 29.4 cm??? LV Ejection Fraction MOD 4C 58.4 % LV Cardiac Index MOD 4C 1902.7 cm???/min???m??? LV Diastolic Length 4C 7.0 cm LV Systolic Length 4C 5.5 cm LV Diastolic Volume MOD 2C 87.9 cm??? LV Systolic Volume MOD 2C 40.9 cm??? LV Ejection Fraction MOD 2C 53.4 % LV Cardiac Index MOD 2C 2169.7 cm???/min???m??? LV Diastolic Length 2C 7.4 cm LV Systolic Length 2C 5.6 cm LA Volume 32.4 cm??? 18 - 58 / 22 - 52 cm??? LA Volume Index 20.8 cm???/m??? 16 - 28 cm???/m??? M-MODE Aortic Root Diameter MM 2.8 cm AV Cusp Separation MM 2.0 cm DOPPLER AV Peak Velocity 126.7 cm/s AV Peak Gradient 6.4 mmHg MV Area PHT 3.8 cm??? Mitral E Point Velocity 89.6 cm/s Mitral A Point Velocity 73.4 cm/s Mitral E to A Ratio 1.2 MV Deceleration Time 200.8 ms TR Peak Velocity 213.7 cm/s TR Peak Gradient 18.3 mmHg Right Ventricular Systolic Press 22.7 mmHg FINDINGS Left Ventricle Left ventricular ejection fraction is estimated at 55-60 %. Small left ventricular cavity. Left ventricular wall thickness normal. Normal left ventricular wall motion. Right Ventricle Normal right ventricular size. Right ventricular systolic pressure within normal limits. Right Atrium Normal right atrial size. No right atrial thrombus or mass seen. Left Atrium Normal left atrial size. No left atrial thrombus or mass present. Mitral Valve Structurally normal mitral valve. No mitral stenosis, regurgitation or prolapse. Aortic Valve Trileaflet aortic valve. No aortic valve stenosis or regurgitation. Tricuspid Valve Structurally normal tricuspid valve. Mild tricuspid regurgitation. Pulmonic Valve Structurally normal pulmonic valve. No pulmonic regurgitation. Pericardium No pericardial effusion. No pleural effusion. Aorta Normal size aortic root and proximal ascending aorta. CONCLUSIONS Left ventricular ejection fraction is estimated at 55-60 %. Normal LV cavity size and wall thickness Normal RA, RV, LA size No significant valvular dysfunction No pericardial effusion . Previewed by: Dr José Miguel Pena (Electronically Signed) Final Date: 28 November 2023 16:16
== END | disposition home or self-care (01) ==
LOC: RADECHMAIN 14:28
PROVIDERS: ATTEND Family Medicine
DX: R07.89 Other chest pain (principal); R03.0 Elevated blood-pressure reading, without diagnosis of hypertension; Z82.49 Family history of ischemic heart disease and other diseases of the circulatory system
CPT/HCPCS: 93306

== ENCOUNTER → 2023-12-13 | Outpatient (CLI) | payer BC ==
--- NOTE | 2023-12-13 13:21 | CA ---
Exercise Stress Test Report Name: Timothy Ramos Exam Date: 12/13/2023 11:23 Exam Location: [facility] Ht (in): 68 Wt (lb): 115 BSA: 1.62 Ordering Phys: Vinay Mcbride DO Referring Phys: Ofelia Melendez Technologist: Deidre Feng RDCS Age: 43 Gender: M : 1980 Procedure CPT: Indications: R03.0 ELEVATED BP R07.89 CHEST PAIN Z82.49 FAM HX ICD-10 Codes: Patient History: Medications: NONE Meds past 24 hrs: Pretest Chest Pain: STRESS TEST Flavio Protocol Exercise Duration (min:sec): 06:[address] Depressions (mm): Angina Score: Giron Score: Resting HR (bpm): 96 Peak HR (bpm): 174 Resting BP (mmHg): 142 / 98 Peak BP (mmHg): 182 / 95 MPHR: 176 Target HR: 150 % MPHR: 99 METS: 7.1 Total Dose: Peak Dose: Atropine: Double Product: 45544 BP Response: Stress Termination: Reached target heart rate Stress Symptoms: NO SYMPTOMS Stress Summary: ECG ANALYSIS Resting ECG: Stress ECG: CONCLUSIONS Patient underwent exercise stress EKG with a Flavio protocol treadmill stress test. Patient exercised into Stage 2 for a total of 6 minutes reaching a total of 7.1 METS. Patient's maximum heart rate was 174 which represented 98% age-predicted maximum heart rate. Stress EKG findings: At baseline patient's EKG showed normal sinus rhythm, normal axis, no significant ST or T wave abnormalities. At peak exercise, EKG showed no significant change from baseline. Conclusions: 1. Normal EKG response to exercise without evidence of inducible ischemia. 2. Fair exercise capacity. Dr. Victorino Arana DO (Electronically Signed) Final Date: 13 December 2023 13:20
== END | disposition home or self-care (01) ==
LOC: RADNMMAIN 10:30
PROVIDERS: ATTEND Family Medicine
DX: R03.0 Elevated blood-pressure reading, without diagnosis of hypertension (principal); R07.89 Other chest pain; Z82.49 Family history of ischemic heart disease and other diseases of the circulatory system
CPT/HCPCS: 93017